=== PATIENT | male | born 1935 | race African-American/Black ===

== ENCOUNTER 2018-01-06 09:59 | Outpatient (CLI) | payer MEDICARE ==
--- NOTE | 2018-01-06 11:09 | RAD ---
RIGHT KNEE FOUR VIEWS: History: Knee pain. FINDINGS: There are arthritic changes of the knee with spiking of the tibial spine with mild medial and lateral compartment narrowing and some degenerative changes of the patellofemoral joint space. No acute proc ess. IMPRESSION: Mild arthritic changes of the knee. POS: [facility]
--- NOTE | 2018-01-06 11:51 | RAD ---
1LEFT KNEE 4 VIEWS: Date: 01/06/18 HISTORY: Left knee pain. COMPARISON: None. FINDINGS: Mild narrowing of the medial compartment with osteophyte formation. No significant joint effusion. Th ere are enthesopathic changes of patella. IMPRESSION: No acute fracture or malalignment. Mild degenerative changes. POS: [facility]
== END 2018-01-06 10:00 | disposition home or self-care (01) ==
LOC: RAD-FRANK 09:59
PROVIDERS: ATTEND Internal Medicine
DX: M17.9 Osteoarthritis of knee, unspecified (principal); M17.11 Unilateral primary osteoarthritis, right knee

== ENCOUNTER 2019-11-09 13:48 | Outpatient (CLI) | payer MEDICARE ==
--- NOTE | 2019-11-09 14:38 | RAD ---
PA AND LATERAL CHEST: HISTORY: Cough. COMPARISON: 12/31/2011 study. FINDINGS: Heart size is enlarged. Pacemaker is present. The lungs are clear of infiltrates. No signs of fail ure. IMPRESSION: Cardiomegaly. POS: [facility]
== END 2019-11-09 13:49 | disposition home or self-care (01) ==
LOC: RAD-FRANK 13:48
PROVIDERS: ATTEND Internal Medicine
DX: R05 Cough (principal); I51.7 Cardiomegaly
CPT/HCPCS: 71046

== ENCOUNTER 2020-07-05 04:55 | Emergency (ER) | payer MEDICARE ==
[2020-07-05] MEDS ORDERED: Oxymetazoline HCl 0.05% (30 ML BOT) ONE (05:16)
[2020-07-05 05:51] LABS: #Basophils 0.1 thou/uL (0.0-0.2); #Eosinphils 0.1 thou/uL (0.0-0.7); #Lymphocytes 2.4 thou/uL (1.20-3.40); #Monocytes 0.5 thou/uL (0.11-0.59); #Neutrophils 2.6 thou/uL (1.40-6.50); %Basophils 0.9 % (0.0-1.0); %Eosinophils 2.4 % (0.0-10.0); %Lymphocytes 41.7 % (21.0-51.0); %Monocytes 8.8 % (0.0-10.0); %Neutrophils 46.3 % (42.0-75.0); Hemoglobin 12.4 g/dL (14.0-18.0); Mean Corpuscular HGB CONC 30.5 g/dL (32.0-36.0); Mean Corpuscular Hemoglobin 28.9 pg (27.0-31.0); Mean Corpuscular Volume 94.8 fL (78.0-98.0); Mean Platelet Volume 8.6 fL (7.4-10.4); Platelet Count 140 thou/uL (130-400); RBC Distribution Width 14.5 % (11.5-14.5); Red Blood Cell (RBC) Count 4.28 mill/uL (4.70-6.10); White Blood Cell (WBC) Count 5.7 thou/uL (4.8-10.8)
[2020-07-05 06:02] LABS: INR-International Normal Ratio 2.3; Prothrombin Time 25.8 sec (12.0-14.7)
== END 2020-07-05 06:27 | disposition home or self-care (01) ==
LOC: ERS 04:55
DX: R04.0 Epistaxis (principal); Z79.01 Long term (current) use of anticoagulants; I10 Essential (primary) hypertension; Z79.899 Other long term (current) drug therapy
CPT/HCPCS: 36415; 85025; 85610; 85730; 99283

== ENCOUNTER 2022-02-12 08:52 | Outpatient (CLI) | payer MEDICARE | END 2022-02-12 08:53 | disposition home or self-care (01) | LOC: ULT 08:52 | PROVIDERS: ATTEND Nurse Practitioner Family | DX: M79.604 Pain in right leg (principal) ==

== ENCOUNTER 2022-12-11 15:07 | Inpatient (IN) | payer MEDICARE ==
[2022-12-11 16:55] LABS: INR-International Normal Ratio 2.7; Prothrombin Time 29.5 sec (12.0-14.7)
[2022-12-11 16:56] LABS: #Lymphocytes 1.8 thou/uL (1.20-3.40); #Monocytes 0.6 thou/uL (0.11-0.59); #Neutrophils 2.8 thou/uL (1.40-6.50); %Basophils 0.4 % (0.0-1.0); %Eosinophils 0.3 % (0.0-10.0); %Lymphocytes 34.3 % (21.0-51.0); %Monocytes 12.1 % (0.0-10.0); %Neutrophils 52.8 % (42.0-75.0); Hemoglobin 15.9 g/dL (14.0-18.0); Mean Corpuscular HGB CONC 31.2 g/dL (32.0-36.0); Mean Corpuscular Hemoglobin 29.3 pg (27.0-31.0); Mean Corpuscular Volume 93.7 fl (78.0-98.0); Mean Platelet Volume 7.3 fL (7.4-10.4); Platelet Count 212 10x3/uL (130-400); RBC Distribution Width 14.9 % (11.5-14.5); Red Blood Cell (RBC) Count 5.44 mill/uL (4.70-6.10); White Blood Cell (WBC) Count 5.2 10x3/uL (4.8-10.8)
[2022-12-11 17:07] LABS: ALT (SGPT) 21 U/L (8-55); AST (SGOT) 28 U/L (5-34); Albumin 3.7 g/dL (3.4-4.8); Alkaline Phosphatase 75 U/L (40-110); Anion Gap 13 mmol/L (10-20); BUN (Urea Nitrogen) 14 mg/dL (8.4-25.7); Bilirubin, Total 1.5 mg/dL (0.2-1.2); Calc. Creatinine Clearance 0 mL/min (70-130); Calcium 9.8 mg/dL (7.8-10.44); Carbon Dioxide 28 mmol/L (23-31); Chloride 100 mmol/L (98-107); Estimated GFR 65; Globulin 3.5 g/dL (2.4-3.5); Glucose 98 mg/dL (83-110); Potassium 3.3 mmol/L (3.5-5.1); Protein, Total 7.2 g/dL (5.8-8.1); Sodium 138 mmol/L (136-145)
[2022-12-11 17:28] LABS: CKMB 1.8 ng/mL (0-6.6)
[2022-12-12 00:54] VITALS: BMI 20.6
[2022-12-12 05:25] LABS: #Basophils 0.1 thou/uL (0.0-0.2); #Lymphocytes 2.3 thou/uL (1.20-3.40); #Monocytes 0.7 thou/uL (0.11-0.59); #Neutrophils 4.1 thou/uL (1.40-6.50); %Basophils 0.8 % (0.0-1.0); %Eosinophils 0.3 % (0.0-10.0); %Lymphocytes 32.6 % (21.0-51.0); %Monocytes 9.2 % (0.0-10.0); %Neutrophils 57.1 % (42.0-75.0); Hemoglobin 14.8 g/dL (14.0-18.0); Mean Corpuscular Hemoglobin 29.1 pg (27.0-31.0); Mean Corpuscular Volume 93.9 fl (78.0-98.0); Mean Platelet Volume 7.4 fL (7.4-10.4); Platelet Count 204 10x3/uL (130-400); RBC Distribution Width 14.8 % (11.5-14.5); Red Blood Cell (RBC) Count 5.09 mill/uL (4.70-6.10); White Blood Cell (WBC) Count 7.2 10x3/uL (4.8-10.8)
[2022-12-12 05:31] LABS: Anion Gap 11 mmol/L (10-20); BUN (Urea Nitrogen) 15 mg/dL (8.4-25.7); Calc. Creatinine Clearance 49 mL/min (70-130); Calcium 9.2 mg/dL (7.8-10.44); Carbon Dioxide 27 mmol/L (23-31); Chloride 104 mmol/L (98-107); Estimated GFR 82; Glucose 91 mg/dL (83-110); Potassium 3.1 mmol/L (3.5-5.1); Sodium 139 mmol/L (136-145)
[2022-12-12] MEDS: Atorvastatin Calcium 20 MG TAB PO SCH (08:31)
[2022-12-12 09:40] LABS: Cardiac Risk 2.7 (Less than 4.5)
[2022-12-12] MEDS ORDERED: Temazepam 15 MG CAP PO PRN (10:54)
[2022-12-12 12:52] LABS: INR-International Normal Ratio 2.5; Prothrombin Time 27.7 sec (12.0-14.7)
[2022-12-12] MEDS ORDERED: Acetaminophen/Codeine 30-300mg Tablet PO PRN (16:06)
[2022-12-12] MEDS: Potassium Chloride 20 MEQ in Premix Bag 1 BAG IVPB SCH ×2 (17:05→20:57)
[2022-12-12] MEDS: Carvedilol 6.25 MG TAB PO SCH (20:59)
[2022-12-12] MEDS ORDERED: Non-Formulary Item 1 EACH (Carvedilol [Coreg] 12.5 MG Tab) PO SCH (21:00)
[2022-12-13 06:24] LABS: #Monocytes 0.6 thou/uL (0.11-0.59); #Neutrophils 3.2 thou/uL (1.40-6.50); %Basophils 0.8 % (0.0-1.0); %Eosinophils 0.2 % (0.0-10.0); %Lymphocytes 34.1 % (21.0-51.0); %Monocytes 10.2 % (0.0-10.0); %Neutrophils 54.6 % (42.0-75.0); Hemoglobin 14.2 g/dL (14.0-18.0); Mean Corpuscular HGB CONC 32.3 g/dL (32.0-36.0); Mean Corpuscular Hemoglobin 30.3 pg (27.0-31.0); Mean Corpuscular Volume 93.7 fl (78.0-98.0); Mean Platelet Volume 7.8 fL (7.4-10.4); Platelet Count 173 10x3/uL (130-400); RBC Distribution Width 14.8 % (11.5-14.5); White Blood Cell (WBC) Count 5.8 10x3/uL (4.8-10.8)
[2022-12-13 06:31] LABS: INR-International Normal Ratio 1.9; Prothrombin Time 22.4 sec (12.0-14.7)
[2022-12-13 06:43] LABS: ALT (SGPT) 17 U/L (8-55); AST (SGOT) 22 U/L (5-34); Albumin 2.7 g/dL (3.4-4.8); Alkaline Phosphatase 63 U/L (40-110); Anion Gap 11 mmol/L (10-20); BUN (Urea Nitrogen) 12 mg/dL (8.4-25.7); Bilirubin, Total 1.3 mg/dL (0.2-1.2); Calc. Creatinine Clearance 52 mL/min (70-130); Calcium 8.9 mg/dL (7.8-10.44); Carbon Dioxide 25 mmol/L (23-31); Chloride 106 mmol/L (98-107); Estimated GFR 84; Globulin 2.8 g/dL (2.4-3.5); Glucose 90 mg/dL (83-110); Potassium 3.7 mmol/L (3.5-5.1); Protein, Total 5.5 g/dL (5.8-8.1); Sodium 138 mmol/L (136-145)
[2022-12-13 06:47] LABS: Troponin I 0.044 ng/mL (< 0.028)
[2022-12-13] MEDS: Atorvastatin Calcium 20 MG TAB PO SCH (08:27)
[2022-12-13] MEDS ORDERED: Lisinopril/Hydrochlorothiazide 10 mg/12.5 mg Tablet PO SCH (09:00)
[2022-12-13] MEDS ORDERED: Amlodipine 10 MG TAB PO SCH (09:00)
[2022-12-13] MEDS ORDERED: Aspirin 325 MG TAB PO SCH (09:00)
[2022-12-13] MEDS: Carvedilol 6.25 MG TAB PO SCH ×2 (10:31→20:16)
[2022-12-13] MEDS: Acetaminophen/Codeine 30-300mg Tablet PO SCH ×3 (12:52→20:15)
[2022-12-13] MEDS ORDERED: Warfarin Sodium 5 MG TAB PO SCH (17:00)
[2022-12-14] MEDS: Acetaminophen/Codeine 30-300mg Tablet PO SCH ×3 (03:23→09:23)
[2022-12-14 06:09] LABS: #Basophils 0.1 thou/uL (0.0-0.2); #Lymphocytes 2.2 thou/uL (1.20-3.40); #Monocytes 0.5 thou/uL (0.11-0.59); #Neutrophils 3.3 thou/uL (1.40-6.50); %Basophils 1.2 % (0.0-1.0); %Eosinophils 0.1 % (0.0-10.0); %Lymphocytes 36.3 % (21.0-51.0); %Monocytes 8.7 % (0.0-10.0); %Neutrophils 53.6 % (42.0-75.0); Hemoglobin 13.8 g/dL (14.0-18.0); Mean Corpuscular HGB CONC 32.5 g/dL (32.0-36.0); Mean Corpuscular Hemoglobin 30.3 pg (27.0-31.0); Mean Corpuscular Volume 93.3 fl (78.0-98.0); Mean Platelet Volume 7.6 fL (7.4-10.4); Platelet Count 165 10x3/uL (130-400); RBC Distribution Width 14.9 % (11.5-14.5); Red Blood Cell (RBC) Count 4.54 mill/uL (4.70-6.10); White Blood Cell (WBC) Count 6.2 10x3/uL (4.8-10.8)
[2022-12-14 06:18] LABS: INR-International Normal Ratio 1.9; Prothrombin Time 22.1 sec (12.0-14.7)
[2022-12-14 06:28] LABS: Anion Gap 10 mmol/L (10-20); BUN (Urea Nitrogen) 11 mg/dL (8.4-25.7); Calc. Creatinine Clearance 56 mL/min (70-130); Calcium 8.7 mg/dL (7.8-10.44); Carbon Dioxide 23 mmol/L (23-31); Chloride 105 mmol/L (98-107); Estimated GFR 86; Glucose 88 mg/dL (83-110); Potassium 4.2 mmol/L (3.5-5.1); Sodium 134 mmol/L (136-145)
[2022-12-14] MEDS ORDERED: Furosemide 40 MG TAB PO SCH (09:00)
[2022-12-14] MEDS ORDERED: Lisinopril 5 MG TAB PO SCH (09:00)
[2022-12-14] MEDS ORDERED: Amlodipine 10 MG TAB PO SCH (09:00)
[2022-12-14] MEDS ORDERED: Lisinopril 10 MG TAB PO SCH (09:00)
[2022-12-14] MEDS ORDERED: Aspirin Chewable 81 MG TAB PO SCH (09:00)
[2022-12-14] MEDS: Carvedilol 6.25 MG TAB PO SCH (09:23)
[2022-12-14] MEDS: Atorvastatin Calcium 20 MG TAB PO SCH (09:23)
[2022-12-14 12:26] VITALS: TEMP 98.3
[2022-12-14 16:07] VITALS: BP 94/63
[2022-12-16] MEDS ORDERED: Warfarin Sodium 5 MG TAB PO SCH (17:00)
== END 2022-12-14 16:07 | disposition home health service (06) | DRG 312 ==
LOC: ERS 15:07 → SUATTDRO 15:07 → NEURO 18:10 → OBSVTOIN 12-13 13:55
PROVIDERS: ADMIT Family Medicine; ATTEND Hospitalist
DX: I95.1 Orthostatic hypotension (principal); I48.91 Unspecified atrial fibrillation; I25.10 Atherosclerotic heart disease of native coronary artery without angina pectoris; I10 Essential (primary) hypertension; K21.9 Gastro-esophageal reflux disease without esophagitis; E87.6 Hypokalemia; E78.5 Hyperlipidemia, unspecified; Z95.0 Presence of cardiac pacemaker; Z79.899 Other long term (current) drug therapy; Z79.82 Long term (current) use of aspirin
CPT/HCPCS: 36415; 70450; 71045; 80048; 80053; 80061; 82553; 83735; 83880; 84484; 85025; 85610; 85730; 93005; 93306; 93880; 96365; 96366; 96372; G0378; J1650; J3480; U0003; U0005

== ENCOUNTER 2022-12-23 13:48 | Emergency (ER) | payer OTHER, MEDICARE ==
[2022-12-23 15:26] LABS: #Lymphocytes 1.5 thou/uL (1.20-3.40); #Monocytes 0.5 thou/uL (0.11-0.59); #Neutrophils 3.4 thou/uL (1.40-6.50); %Basophils 0.2 % (0.0-1.0); %Eosinophils 0.4 % (0.0-10.0); %Neutrophils 62.5 % (42.0-75.0); Hemoglobin 13.1 g/dL (14.0-18.0); Mean Corpuscular HGB CONC 30.5 g/dL (32.0-36.0); Mean Corpuscular Hemoglobin 28.9 pg (27.0-31.0); Mean Corpuscular Volume 94.7 fl (78.0-98.0); Mean Platelet Volume 7.3 fL (7.4-10.4); Platelet Count 139 10x3/uL (130-400); RBC Distribution Width 15.6 % (11.5-14.5); Red Blood Cell (RBC) Count 4.52 mill/uL (4.70-6.10); White Blood Cell (WBC) Count 5.4 10x3/uL (4.8-10.8)
[2022-12-23 15:34] LABS: INR-International Normal Ratio 2.5; PTT 34.1 sec (22.9-36.1); Prothrombin Time 27.7 sec (12.0-14.7)
[2022-12-23 15:50] LABS: ALT (SGPT) 19 U/L (8-55); AST (SGOT) 24 U/L (5-34); Albumin 3.3 g/dL (3.4-4.8); Alkaline Phosphatase 58 U/L (40-110); Anion Gap 10 mmol/L (10-20); BUN (Urea Nitrogen) 14 mg/dL (8.4-25.7); Bilirubin, Total 0.6 mg/dL (0.2-1.2); CK (CPK) 51 U/L (30-200); Calc. Creatinine Clearance 0 mL/min (70-130); Calcium 9.5 mg/dL (7.8-10.44); Carbon Dioxide 25 mmol/L (23-31); Chloride 106 mmol/L (98-107); Estimated GFR 71; Globulin 2.6 g/dL (2.4-3.5); Glucose 102 mg/dL (83-110); Potassium 3.7 mmol/L (3.5-5.1); Protein, Total 5.9 g/dL (5.8-8.1); Sodium 137 mmol/L (136-145)
[2022-12-23] MEDS ORDERED: HYDROcodone/Acetaminophen 5/325 mg Tablet ONE (16:02)
== END 2022-12-23 16:38 | disposition home or self-care (01) ==
LOC: ERS 13:48
DX: S00.83XA Contusion of other part of head, initial encounter (principal); I25.10 Atherosclerotic heart disease of native coronary artery without angina pectoris; I10 Essential (primary) hypertension; K21.9 Gastro-esophageal reflux disease without esophagitis; W01.0XXA Fall on same level from slipping, tripping and stumbling without subsequent striking against object, initial encounter; Z79.01 Long term (current) use of anticoagulants
CPT/HCPCS: 36415; 70450; 72125; 80053; 82550; 85025; 85610; 85730; 93005

== ENCOUNTER 2023-03-02 14:41 | Inpatient (IN) | payer MEDICARE, OTHER ==
[2023-03-02 15:08] LABS: #Monocytes 0.8 thou/uL (0.11-0.59); #Neutrophils 4.3 thou/uL (1.40-6.50); %Basophils 0.3 % (0.0-1.0); %Lymphocytes 24.8 % (21.0-51.0); %Monocytes 11.7 % (0.0-10.0); %Neutrophils 62.8 % (42.0-75.0); Hemoglobin 13.1 g/dL (14.0-18.0); Mean Corpuscular HGB CONC 32.4 g/dL (32.0-36.0); Mean Corpuscular Hemoglobin 29.6 pg (27.0-31.0); Mean Corpuscular Volume 91.2 fl (78.0-98.0); Mean Platelet Volume 10.4 fL (7.4-10.4); RBC Distribution Width 19.3 % (11.5-14.5); Red Blood Cell (RBC) Count 4.43 mill/uL (4.70-6.10); White Blood Cell (WBC) Count 6.9 10x3/uL (4.8-10.8)
[2023-03-02 15:11] LABS: Platelet Count 117 10x3/uL (130-400)
[2023-03-02 15:31] LABS: ALT (SGPT) 76 U/L (8-55); AST (SGOT) 208 U/L (5-34); Albumin 3.1 g/dL (3.4-4.8); Alkaline Phosphatase 76 U/L (40-110); Anion Gap 18 mmol/L (10-20); BUN (Urea Nitrogen) 25 mg/dL (8.4-25.7); Bilirubin, Total 3.8 mg/dL (0.2-1.2); CK (CPK) 167 U/L (30-200); Calc. Creatinine Clearance 0 mL/min (70-130); Calcium 9.2 mg/dL (7.8-10.44); Carbon Dioxide 19 mmol/L (23-31); Chloride 107 mmol/L (98-107); Estimated GFR 75; Globulin 2.9 g/dL (2.4-3.5); Glucose 79 mg/dL (83-110); Sodium 140 mmol/L (136-145)
[2023-03-02 15:53] LABS: CKMB 2.3 ng/mL (0-6.6)
[2023-03-02] MEDS ORDERED: Aspirin 81 mg Enteric Coated Tablet ONE (17:05)
[2023-03-02] MEDS ORDERED: Acetaminophen 325 MG TAB PO PRN (17:29)
[2023-03-02] MEDS ORDERED: HYDROcodone/Acetaminophen 5/325 mg Tablet PO PRN (17:29)
[2023-03-02] MEDS ORDERED: Ondansetron PF 4 MG/2 ML Vial IVP PRN (17:29)
[2023-03-02] MEDS ORDERED: Nitroglycerin 0.4 MG TAB (25 Tab Bottle) SL PRN (17:29)
[2023-03-02] MEDS ORDERED: Ondansetron ODT 4 MG TAB PO PRN (17:29)
[2023-03-02 18:49] LABS: Troponin I 0.143 ng/mL (< 0.028)
[2023-03-02 20:21] VITALS: BMI 19.3
[2023-03-02 21:22] LABS: INR-International Normal Ratio 1.9; PTT 41.1 sec (22.9-36.1); Prothrombin Time 22.8 sec (12.0-14.7)
[2023-03-02 21:38] LABS: Troponin I 0.134 ng/mL (< 0.028)
[2023-03-02 23:25] LABS: Bacteria/HPF None Seen HPF (None Seen); Bilirubin 1+ (Negative); Blood, Urine 1+ (Negative); CAUTI Indications for Culture Alt mental st,lethar; Clarity Clear (Clear); Glucose, Urine (Dipstick) Normal (Negative); Ketone, Urine 10 mg/dL (Negative); Leukocyte Negative Leu/uL (Negative); Nitrite Negative (Negative); Protein, Urine (Dipstick) 100 mg/dL (Neg-Trace); RBC/HPF 0-3 HPF (0-3); Specific Gravity, Urine 1.023 (1.002-1.036); Squamous Epithelial 0-3 HPF (0-3); Urobilinogen 3 mg/dL (Less than 2)
[2023-03-03 00:16] LABS: Urine Culture Reflex No No
[2023-03-03 04:44] LABS: #Neutrophils 4.7 thou/uL (1.40-6.50); %Basophils 0.3 % (0.0-1.0); %Eosinophils 0.1 % (0.0-10.0); %Lymphocytes 26.4 % (21.0-51.0); %Monocytes 12.6 % (0.0-10.0); %Neutrophils 59.8 % (42.0-75.0); Hemoglobin 13.4 g/dL (14.0-18.0); Mean Corpuscular HGB CONC 32.4 g/dL (32.0-36.0); Mean Corpuscular Hemoglobin 29.5 pg (27.0-31.0); RBC Distribution Width 19.7 % (11.5-14.5); Red Blood Cell (RBC) Count 4.54 mill/uL (4.70-6.10); White Blood Cell (WBC) Count 7.9 10x3/uL (4.8-10.8)
[2023-03-03 04:47] LABS: Platelet Count 111 10x3/uL (130-400)
[2023-03-03 05:38] LABS: ALT (SGPT) 76 U/L (8-55); AST (SGOT) 196 U/L (5-34); Albumin 3.2 g/dL (3.4-4.8); Alkaline Phosphatase 74 U/L (40-110); Anion Gap 22 mmol/L (10-20); BUN (Urea Nitrogen) 30 mg/dL (8.4-25.7); Bilirubin, Total 4.2 mg/dL (0.2-1.2); Calc. Creatinine Clearance 36 mL/min (70-130); Calcium 9.5 mg/dL (7.8-10.44); Carbon Dioxide 18 mmol/L (23-31); Cardiac Risk 6.5 (Less than 4.5); Chloride 108 mmol/L (98-107); Cholesterol 157 mg/dl (< 200 Desired); Estimated GFR 64; Globulin 3.2 g/dL (2.4-3.5); Glucose 91 mg/dL (83-110); HDL Cholesterol 24 mg/dL (>60 Neg Risk); LDL Cholesterol, Calculated 109 mg/dL; Potassium 5.3 mmol/L (3.5-5.1); Protein, Total 6.4 g/dL (5.8-8.1); Sodium 143 mmol/L (136-145); Triglycerides 118 mg/dL (Less than 150)
[2023-03-03] MEDS ORDERED: Metoclopramide HCl 10 MG TAB PO SCH (09:00)
[2023-03-03] MEDS ORDERED: Aspirin Chewable 81 MG TAB PO SCH (09:00)
[2023-03-03] MEDS ORDERED: Atorvastatin Calcium 20 MG TAB PO SCH (09:00)
[2023-03-03] MEDS: Aspirin Chewable 81 MG TAB PO SCH (09:46)
[2023-03-03] MEDS ORDERED: Carvedilol 6.25 MG TAB PO SCH (10:00)
[2023-03-03] MEDS: Sodium Chloride 0.9% 1,000 ML IV SCH (13:49)
[2023-03-03] MEDS: Carvedilol 6.25 MG TAB PO SCH ×2 (17:07→18:42)
[2023-03-03] MEDS: Warfarin Sodium 7.5 MG TAB PO SCH ×2 (17:08→18:43)
[2023-03-03] MEDS ORDERED: Atorvastatin Calcium 40 MG TAB PO SCH (21:00)
[2023-03-04] MEDS: guaiFENesin ER 600 MG TAB PO SCH ×2 (00:35→10:03)
[2023-03-04 04:54] LABS: Mean Corpuscular HGB CONC 32.8 g/dL (32.0-36.0); Mean Corpuscular Hemoglobin 29.3 pg (27.0-31.0); Mean Corpuscular Volume 89.4 fl (78.0-98.0); Platelet Count 91 10x3/uL (130-400); Red Blood Cell (RBC) Count 4.43 mill/uL (4.70-6.10); White Blood Cell (WBC) Count 7.5 10x3/uL (4.8-10.8)
[2023-03-04 05:03] LABS: INR-International Normal Ratio 1.7; PTT 40.8 sec (22.9-36.1)
[2023-03-04 05:09] LABS: Acetaminophen Less than 10 mcg/mL (10.0-30.0); Alcohol Less than 10.0 mg/dL (Less than 10); Salicylate Less than 8.0 mg/dL (15.0-30.0)
[2023-03-04 05:23] LABS: AST (SGOT) 133 U/L (5-34); Albumin 2.7 g/dL (3.4-4.8); Alkaline Phosphatase 52 U/L (40-110); Anion Gap 16 mmol/L (10-20); BUN (Urea Nitrogen) 19 mg/dL (8.4-25.7); Bilirubin, Total 4.9 mg/dL (0.2-1.2); Calc. Creatinine Clearance 45 mL/min (70-130); Calcium 8.8 mg/dL (7.8-10.44); Carbon Dioxide 17 mmol/L (23-31); Chloride 108 mmol/L (98-107); Estimated GFR 82; Globulin 3.5 g/dL (2.4-3.5); Glucose 81 mg/dL (83-110); Potassium 4.2 mmol/L (3.5-5.1); Protein, Total 6.2 g/dL (5.8-8.1); Sodium 137 mmol/L (136-145)
[2023-03-04 05:36] LABS: HBCM Index 0.06 S/CO (0-0.79); HBSAg Index 0.19 S/CO (0-0.99); Hep A IgM AB Non-Reactive S/CO (NonReactive); Hep A IgM S/CO 0.38 S/CO (0-0.79); Hep B Surf Ag Non-Reactive S/CO (NonReactive); Hep C IgG Ab Non-Reactive S/CO (NonReactive); Hep C Index 0.14 S/CO (0-0.79); Hepatitis B Core IgM Abs Non-Reactive S/CO (NonReactive)
[2023-03-04 06:00] LABS: ALT (SGPT) 56 U/L (8-55)
[2023-03-04] MEDS ORDERED: Megestrol Acetate 40 MG TAB PO SCH (09:00)
[2023-03-04 09:54] LABS: Troponin I 0.102 ng/mL (< 0.028)
[2023-03-04] MEDS: Carvedilol 6.25 MG TAB PO SCH ×2 (10:02→17:11)
[2023-03-04] MEDS: Aspirin Chewable 81 MG TAB PO SCH (10:02)
[2023-03-04] MEDS: Thiamine 100 MG TAB PO SCH (10:03)
[2023-03-04 14:04] LABS: ANA Symphony (Qualitative) Negative (Negative); ANA Symphony (Quantitative) 0.4 Ratio (< 0.7 Negative); EliA Vaculitis New Method **** NEW METHOD ****; Mitochondrial Ab 1.7 U/mL (<4 Negative); dsDNA IgG Antibody 1.6 IU/mL (<10 Negative)
[2023-03-04] MEDS: Sodium Chloride 0.9% 1,000 ML IV SCH (15:27)
[2023-03-04] MEDS ORDERED: Megestrol Acetate 400 MG/10 ML UDCUP PO SCH (17:00)
[2023-03-04] MEDS ORDERED: Megestrol Acetate 800 MG/20 ML UDCUP PO SCH (17:00)
[2023-03-04] MEDS: GUAIFENESIN SF SOLN 200 MG/10 ML UDCUP PO SCH (17:10)
[2023-03-04] MEDS: Warfarin Sodium 5 MG TAB PO SCH (17:11)
[2023-03-05 05:16] LABS: INR-International Normal Ratio 1.6
[2023-03-05 05:28] LABS: ALT (SGPT) 42 U/L (8-55); AST (SGOT) 82 U/L (5-34); Albumin 2.6 g/dL (3.4-4.8); Alkaline Phosphatase 70 U/L (40-110); Anion Gap 15 mmol/L (10-20); BUN (Urea Nitrogen) 29 mg/dL (8.4-25.7); Bilirubin, Total 4.3 mg/dL (0.2-1.2); Calc. Creatinine Clearance 51 mL/min (70-130); Calcium 8.8 mg/dL (7.8-10.44); Carbon Dioxide 18 mmol/L (23-31); Chloride 109 mmol/L (98-107); Estimated GFR 86; Globulin 2.9 g/dL (2.4-3.5); Glucose 96 mg/dL (83-110); Potassium 3.7 mmol/L (3.5-5.1); Protein, Total 5.5 g/dL (5.8-8.1); Sodium 138 mmol/L (136-145)
[2023-03-05] MEDS ORDERED: Megestrol Acetate 400 MG/10 ML UDCUP PO SCH (09:00)
[2023-03-05 09:25] LABS: Hemoglobin 13.4 g/dL (14.0-18.0); Mean Corpuscular HGB CONC 31.3 g/dL (32.0-36.0); Mean Corpuscular Hemoglobin 29.1 pg (27.0-31.0); RBC Distribution Width 21.8 % (11.5-14.5)
[2023-03-05 09:26] LABS: Delete Auto Diff?? YES; Manual Diff?? YES; Platelet Count 71 10x3/uL (130-400)
[2023-03-05] MEDS: Carvedilol 6.25 MG TAB PO SCH ×2 (10:12→18:25)
[2023-03-05] MEDS: Aspirin Chewable 81 MG TAB PO SCH (10:12)
[2023-03-05] MEDS: GUAIFENESIN SF SOLN 200 MG/10 ML UDCUP PO SCH ×2 (10:12→20:59)
[2023-03-05] MEDS: Megestrol Acetate 800 MG/20 ML UDCUP PO SCH (10:12)
[2023-03-05] MEDS: Thiamine 100 MG TAB PO SCH (10:12)
[2023-03-05] MEDS: Sodium Chloride 0.9% 1,000 ML IV SCH (10:35)
[2023-03-05 10:37] LABS: Band 4 % (5-11); Lymphocytes 17 % (21-51); Monocytes 3 % (0-10); Neutrophil 76 % (42-75); Nucleated RBC (Manual Ct) 6 % (0)
[2023-03-05 10:38] LABS: Macrocytosis SLIGHT = 6-15 cells (100X) (0-5/hpf); Platelet Adequacy Comment Significant decrease; Polychromasia MODERATE = 3-4 cells (100X) (0-2/hpf)
[2023-03-05] MEDS: Warfarin Sodium 5 MG TAB PO SCH (18:25)
[2023-03-06 04:43] LABS: #Eosinphils 0.1 thou/uL (0.0-0.7); #Monocytes 0.8 thou/uL (0.11-0.59); #Neutrophils 5.3 thou/uL (1.40-6.50); %Basophils 0.4 % (0.0-1.0); %Eosinophils 0.8 % (0.0-10.0); %Lymphocytes 19.4 % (21.0-51.0); %Monocytes 9.8 % (0.0-10.0); Hemoglobin 12.9 g/dL (14.0-18.0); Mean Corpuscular Hemoglobin 29.3 pg (27.0-31.0); Mean Corpuscular Volume 91.4 fl (78.0-98.0); Red Blood Cell (RBC) Count 4.41 mill/uL (4.70-6.10); White Blood Cell (WBC) Count 7.7 10x3/uL (4.8-10.8)
[2023-03-06 04:49] LABS: Platelet Count 106 10x3/uL (130-400)
[2023-03-06 04:57] LABS: INR-International Normal Ratio 1.8; Prothrombin Time 21.3 sec (12.0-14.7)
[2023-03-06 05:14] LABS: ALT (SGPT) 40 U/L (8-55); AST (SGOT) 69 U/L (5-34); Albumin 2.7 g/dL (3.4-4.8); Alkaline Phosphatase 68 U/L (40-110); Anion Gap 16 mmol/L (10-20); BUN (Urea Nitrogen) 27 mg/dL (8.4-25.7); Bilirubin, Total 4.2 mg/dL (0.2-1.2); Calc. Creatinine Clearance 50 mL/min (70-130); Calcium 8.8 mg/dL (7.8-10.44); Carbon Dioxide 17 mmol/L (23-31); Chloride 111 mmol/L (98-107); Estimated GFR 86; Glucose 88 mg/dL (83-110); Potassium 3.8 mmol/L (3.5-5.1); Protein, Total 5.7 g/dL (5.8-8.1); Sodium 140 mmol/L (136-145)
[2023-03-06] MEDS: GUAIFENESIN SF SOLN 200 MG/10 ML UDCUP PO SCH ×2 (09:13→23:20)
[2023-03-06] MEDS: Megestrol Acetate 800 MG/20 ML UDCUP PO SCH (09:13)
[2023-03-06] MEDS: Thiamine 100 MG TAB PO SCH (09:14)
[2023-03-06] MEDS: Carvedilol 6.25 MG TAB PO SCH ×2 (09:14→17:27)
[2023-03-06] MEDS: Aspirin Chewable 81 MG TAB PO SCH (09:14)
[2023-03-06] MEDS: Sodium Chloride 0.9% 1,000 ML IV SCH (09:15)
[2023-03-06] MEDS: Warfarin Sodium 5 MG TAB PO SCH (17:27)
[2023-03-06] MEDS ORDERED: Furosemide 40 MG/4 ML VIAL SLOW IVP SCH ×2 (18:00→23:55)
[2023-03-07 05:01] LABS: INR-International Normal Ratio 1.8; Prothrombin Time 21.7 sec (12.0-14.7)
[2023-03-07 05:10] LABS: #Monocytes 0.7 thou/uL (0.11-0.59); #Neutrophils 4.8 thou/uL (1.40-6.50); %Basophils 0.6 % (0.0-1.0); %Eosinophils 0.6 % (0.0-10.0); %Lymphocytes 15.2 % (21.0-51.0); %Monocytes 10.9 % (0.0-10.0); %Neutrophils 72.1 % (42.0-75.0); Hemoglobin 13.7 g/dL (14.0-18.0); Mean Corpuscular HGB CONC 33.3 g/dL (32.0-36.0); Mean Corpuscular Hemoglobin 29.6 pg (27.0-31.0); Mean Corpuscular Volume 88.8 fl (78.0-98.0); Platelet Count 97 10x3/uL (130-400); RBC Distribution Width 21.6 % (11.5-14.5); Red Blood Cell (RBC) Count 4.63 mill/uL (4.70-6.10); White Blood Cell (WBC) Count 6.6 10x3/uL (4.8-10.8)
[2023-03-07 05:16] LABS: ALT (SGPT) 35 U/L (8-55); AST (SGOT) 57 U/L (5-34); Albumin 2.8 g/dL (3.4-4.8); Alkaline Phosphatase 65 U/L (40-110); Anion Gap 16 mmol/L (10-20); BUN (Urea Nitrogen) 24 mg/dL (8.4-25.7); Bilirubin, Total 3.7 mg/dL (0.2-1.2); Calc. Creatinine Clearance 45 mL/min (70-130); Calcium 8.9 mg/dL (7.8-10.44); Carbon Dioxide 19 mmol/L (23-31); Chloride 110 mmol/L (98-107); Estimated GFR 83; Glucose 84 mg/dL (83-110); Iron 55 ug/dL (65-175); Iron Binding Capacity, Total 225 mcg/dL (261-462); Potassium 3.3 mmol/L (3.5-5.1); Protein, Total 5.8 g/dL (5.8-8.1); Sodium 142 mmol/L (136-145)
[2023-03-07 05:39] LABS: Anisocytosis SLIGHT = 6-15 cells HPF (0-5); Burr Cells SLIGHT = 2-5 cells HPF (0-1); CellaVision Operator ID lab.abc; Large Platelets 7.1 % (0-5); Platelet Adequacy Comment Platelets Decreased; Poikilocytosis SLIGHT = 6-15 cells HPF (0-5); Polychromasia MODERATE = 3-4 cells HPF (0-2); Smudge Cells 22.4 %; Spherocytes SLIGHT = 1-5 cells HPF (None Seen); Target Cells SLIGHT = 2-5 cells HPF (0-1)
[2023-03-07 06:35] LABS: Iron 55 ug/dL (65-175); Iron Binding Capacity, Total 226 mcg/dL (261-462)
[2023-03-07] MEDS: Furosemide 40 MG/4 ML VIAL SLOW IVP SCH ×3 (07:39→16:40)
[2023-03-07] MEDS ORDERED: Potassium Chloride 10 MEQ in Premix Bag 1 BAG IVPB SCH (08:30)
[2023-03-07] MEDS: Carvedilol 6.25 MG TAB PO SCH ×2 (15:00→17:14)
[2023-03-07] MEDS: Aspirin Chewable 81 MG TAB PO SCH (15:01)
[2023-03-07] MEDS: Thiamine 100 MG TAB PO SCH (15:01)
[2023-03-07] MEDS ORDERED: Warfarin Sodium 7.5 MG TAB PO SCH (17:00)
[2023-03-07] MEDS: Dextrose 5 %-0.45 % NaCl 1,000 ML IV SCH (20:06)
[2023-03-07] MEDS ORDERED: Furosemide 40 MG/4 ML VIAL SLOW IVP SCH (23:55)
[2023-03-08 05:19] LABS: Prothrombin Time 23.4 sec (12.0-14.7)
[2023-03-08 05:28] LABS: ALT (SGPT) 32 U/L (8-55); AST (SGOT) 57 U/L (5-34); Albumin 2.9 g/dL (3.4-4.8); Alkaline Phosphatase 63 U/L (40-110); Anion Gap 16 mmol/L (10-20); BUN (Urea Nitrogen) 22 mg/dL (8.4-25.7); Bilirubin, Total 3.9 mg/dL (0.2-1.2); Calc. Creatinine Clearance 42 mL/min (70-130); Carbon Dioxide 19 mmol/L (23-31); Chloride 112 mmol/L (98-107); Estimated GFR 77; Glucose 121 mg/dL (83-110); Potassium 3.3 mmol/L (3.5-5.1); Protein, Total 5.9 g/dL (5.8-8.1); Sodium 144 mmol/L (136-145)
[2023-03-08 07:38] LABS: Hemoglobin 13.5 g/dL (14.0-18.0); Mean Corpuscular Hemoglobin 29.2 pg (27.0-31.0); Mean Corpuscular Volume 85.9 fl (78.0-98.0); RBC Distribution Width 21.8 % (11.5-14.5); Red Blood Cell (RBC) Count 4.62 mill/uL (4.70-6.10); White Blood Cell (WBC) Count 7.3 10x3/uL (4.8-10.8)
[2023-03-08 07:42] LABS: Delete Auto Diff?? YES; Manual Diff?? YES; Platelet Count 114 10x3/uL (130-400)
[2023-03-08 08:30] LABS: Band 23 % (5-11); Lymphocytes 17 % (21-51); Metamyelocyte 2 % (0-0); Monocytes 6 % (0-10); Neutrophil 50 % (42-75); Nucleated RBC (Manual Ct) 11 % (0); Polychromasia MODERATE = 3-4 cells (100X) (0-2/hpf); Reactive Lymphocytes 2 % (0-10)
[2023-03-08 08:31] LABS: Platelet Adequacy Comment Appears Decreased
[2023-03-08] MEDS ORDERED: [UNRECOGNIZED DRUG - OTHER] FS SCH (08:45)
[2023-03-08] MEDS: Carvedilol 6.25 MG TAB PO SCH ×2 (09:56→16:45)
[2023-03-08] MEDS: Dextrose 5 %-0.45 % NaCl 1,000 ML IV SCH ×2 (09:56→16:16)
[2023-03-08] MEDS: Thiamine 100 MG TAB PO SCH (09:56)
[2023-03-08] MEDS: Aspirin Chewable 81 MG TAB PO SCH (09:56)
[2023-03-08] MEDS: Potassium Chloride 20 MEQ in Premix Bag 1 BAG IVPB SCH ×2 (10:09→12:09)
[2023-03-08 13:14] LABS: Magnesium 1.7 mg/dL (1.6-2.6); Phosphorus 1.6 mg/dL (2.3-4.7)
[2023-03-08] MEDS ORDERED: Magnesium 2 GM/50 ML(in water) 2 GM in Premix Bag 1 BAG IVPB SCH (13:30)
[2023-03-08] MEDS ORDERED: Potassium Phosphate 15 MMOL in Sodium Chloride 0.9% 100 ML IVPB SCH (13:45)
[2023-03-08] MEDS ORDERED: Warfarin Sodium 5 MG TAB PO SCH (17:00)
[2023-03-08] MEDS ORDERED: Ipratropium/Albuterol 3 ML NEB NEB SCH (17:15)
[2023-03-08] MEDS ORDERED: Albumin 25% 25 GM/100 ML BOT IVPB SCH (17:15)
[2023-03-08 17:53] LABS: Actual Bicarbonate (HCO3a) 18.8 mEq/L (22-28); Base Excess (BEa) -1.4 mEq/L (-2.0 to +3.0); Calcium, Ionized (arterial) 1.14 mmol/L (1.12-1.30); Carboxyhemoglobin (COHb) 0.8 gm% (0.0-3.0); Hematocrit-ABG 39 % (42.0-52.0); Hemoglobin (Hb) 13.2 g/dL (14.0-18.0); O2 Tension (PaO2), arterial 97.5 mmHg (> 60.0); Potassium - ABG Lab 3.86 mmol/L (3.70-5.30); pH, Arterial 7.563 (7.35-7.45)
[2023-03-08 17:54] LABS: ALV-art Gradient 588.875 mmHg (0-20)
[2023-03-09] MEDS ORDERED: Morphine 4 MG/ML VIAL SLOW IVP PRN (02:02)
[2023-03-09 05:17] LABS: ALT (SGPT) 28 U/L (8-55); AST (SGOT) 49 U/L (5-34); Albumin 3.1 g/dL (3.4-4.8); Alkaline Phosphatase 62 U/L (40-110); Anion Gap 17 mmol/L (10-20); BUN (Urea Nitrogen) 25 mg/dL (8.4-25.7); Bilirubin, Total 4.2 mg/dL (0.2-1.2); Calc. Creatinine Clearance 36 mL/min (70-130); Carbon Dioxide 18 mmol/L (23-31); Chloride 112 mmol/L (98-107); Estimated GFR 64; Globulin 2.9 g/dL (2.4-3.5); Glucose 86 mg/dL (83-110); Magnesium 2.2 mg/dL (1.6-2.6); Potassium 3.9 mmol/L (3.5-5.1); Sodium 143 mmol/L (136-145)
[2023-03-09 06:11] LABS: Phosphorus 2.2 mg/dL (2.3-4.7)
[2023-03-09] MEDS: Carvedilol 6.25 MG TAB PO SCH ×2 (09:23→16:53)
[2023-03-09] MEDS: Aspirin Chewable 81 MG TAB PO SCH (09:24)
[2023-03-09] MEDS: Thiamine 100 MG TAB PO SCH (09:24)
[2023-03-09] MEDS ORDERED: Furosemide 40 MG/4 ML VIAL SLOW IVP SCH (09:30)
[2023-03-09] MEDS ORDERED: Albumin 25% 25 GM/100 ML BOT IVPB SCH (09:30)
[2023-03-09] MEDS ORDERED: Dextrose 5 %-0.45 % NaCl 1,000 ML IV SCH (10:00)
[2023-03-09 14:17] LABS: pH, Arterial 7.552 (7.35-7.45)
[2023-03-09 14:18] LABS: CO2 Tension 22.2 mmHg (35.0-45.0); O2 Tension (PaO2), arterial 136.1 mmHg (> 60.0)
[2023-03-09 14:19] LABS: Actual Bicarbonate (HCO3a) 19.1 mEq/L (22-28); Base Excess (BEa) -1.5 mEq/L (-2.0 to +3.0); Calcium, Ionized (arterial) 1.13 mmol/L (1.12-1.30); Hematocrit-ABG 36 % (42.0-52.0); Hemoglobin (Hb) 12.4 g/dL (14.0-18.0); Potassium - ABG Lab 3.96 mmol/L (3.70-5.30); Puncture Site RBA
[2023-03-09 14:26] LABS: Hemoglobin 11.8 g/dL (14.0-18.0); Mean Corpuscular HGB CONC 32.8 g/dL (32.0-36.0); Mean Corpuscular Hemoglobin 29.4 pg (27.0-31.0); Mean Corpuscular Volume 89.6 fl (78.0-98.0); Platelet Count 154 10x3/uL (130-400); Red Blood Cell (RBC) Count 4.02 mill/uL (4.70-6.10)
[2023-03-09 14:29] LABS: Delete Auto Diff?? YES; Manual Diff?? YES
[2023-03-09 14:48] LABS: Magnesium 2.2 mg/dL (1.6-2.6); Phosphorus 2.3 mg/dL (2.3-4.7)
[2023-03-09 15:10] LABS: Anisocytosis MODERATE=16-30 cells HPF (0-5); Band 10 % (5-11); Burr Cells MODERATE= 6-15 cells HPF (0-1); CellaVision Operator ID LAB.KB; Lymphocytes 12 % (21-51); Monocytes 4 % (0-10); Neutrophil 73 % (42-75); Nucleated RBC (Manual Ct) 11 % (0); Ovalocytes SLIGHT = 2-5 cells HPF (0-1); Platelet Adequacy Comment Platelets Normal; Poikilocytosis SLIGHT = 6-15 cells HPF (0-5); Polychromasia SLIGHT = 2-3 cells HPF (0-2); Reactive Lymphocytes 1 % (0-10); Smudge Cells 18.4 %; Target Cells SLIGHT = 2-5 cells HPF (0-1); Total Cell Count 103
[2023-03-09] MEDS ORDERED: Ampicillin/Sulbactam 1.5 GM in Sodium Chloride 0.9% 100 ML IVPB SCH (18:00)
[2023-03-09] MEDS ORDERED: Scopolamine 1.5 mg/72 hour Patch TOP SCH (20:30)
[2023-03-09] MEDS ORDERED: Ondansetron PF 4 MG/2 ML Vial IVP PRN (20:30)
[2023-03-09] MEDS ORDERED: Lorazepam 2 MG/ML VIAL SLOW IVP SCH (20:30)
[2023-03-09] MEDS ORDERED: Lorazepam 2 MG/ML VIAL SLOW IVP PRN (20:30)
[2023-03-09] MEDS ORDERED: Morphine 2 MG/ML VIAL SLOW IVP PRN (20:32)
[2023-03-09] MEDS ORDERED: Morphine 4 MG/ML VIAL SLOW IVP SCH ×2 (20:45→21:15)
[2023-03-09 21:49] VITALS: TEMP 97.6
[2023-03-09 22:50] VITALS: BP 121/70
[2023-03-09 22:51] LABS: SARS-CoV-2 NAA Rapid Test Not Detected (NotDetected)
[2023-03-10 16:03] LABS: CO2 Tension 21.3 mmHg (35.0-45.0)
== END 2023-03-09 22:33 | disposition hospice, inpatient (51) | DRG 70 ==
LOC: ERS 14:41 → 2NO 17:28 → IMCU/EMU 03-09 14:25
PROVIDERS: ADMIT Internal Medicine; ATTEND Family Medicine
PROC: 4A133R1 Monitoring of Arterial Saturation, Peripheral, Percutaneous Approach (ICD-10-PCS; principal; 2023-03-08)
PROC: 30233J1 Transfusion of Nonautologous Serum Albumin into Peripheral Vein, Percutaneous Approach (ICD-10-PCS; 2023-03-09)
PROC: 5A0935A Assistance with Respiratory Ventilation, Less than 24 Consecutive Hours, High Flow/Velocity Cannula (ICD-10-PCS; 2023-03-09)
DX: G93.41 Metabolic encephalopathy (principal); I50.31 Acute diastolic (congestive) heart failure; K72.00 Acute and subacute hepatic failure without coma; J96.01 Acute respiratory failure with hypoxia; I48.21 Permanent atrial fibrillation; N17.9 Acute kidney failure, unspecified; Z68.1 Body mass index [BMI] 19.9 or less, adult; I5A Non-ischemic myocardial injury (non-traumatic); I13.0 Hypertensive heart and chronic kidney disease with heart failure and stage 1 through stage 4 chronic kidney disease, or unspecified chronic kidney disease; S36.119A Unspecified injury of liver, initial encounter; I25.10 Atherosclerotic heart disease of native coronary artery without angina pectoris; K21.9 Gastro-esophageal reflux disease without esophagitis; E87.5 Hyperkalemia; N18.9 Chronic kidney disease, unspecified; F03.90 Unspecified dementia, unspecified severity, without behavioral disturbance, psychotic disturbance, mood disturbance, and anxiety; Z66 Do not resuscitate; D69.6 Thrombocytopenia, unspecified; I08.1 Rheumatic disorders of both mitral and tricuspid valves; K74.60 Unspecified cirrhosis of liver; E86.0 Dehydration; Z20.822 Contact with and (suspected) exposure to COVID-19; R41.0 Disorientation, unspecified; I48.0 Paroxysmal atrial fibrillation; R74.01 Elevation of levels of liver transaminase levels; Z51.5 Encounter for palliative care; R62.7 Adult failure to thrive; Z79.899 Other long term (current) drug therapy; Z79.82 Long term (current) use of aspirin; Z95.0 Presence of cardiac pacemaker; Z79.01 Long term (current) use of anticoagulants; Z98.49 Cataract extraction status, unspecified eye
CPT/HCPCS: 36415; 36416; 36600; 70450; 71045; 74018; 76705; 80053; 80061; 80074; 80307; 81001; 82103; 82140; 82248; 82390; 82550; 82553; 82728; 82805; 83516; 83540; 83550; 83735; 84100; 84145; 84443; 84484; 85025; 85027; 85610; 85730; 86015; 86038; 86225; 93005; 93306; 94640; 94760; J0295; J1650; J1940; J2270; J3475; J3480; J3490; J7042; J7050; J7620; P9047

== ENCOUNTER 2023-03-09 22:38 | Inpatient (IN) | payer OTHER ==
[2023-03-09] MEDS ORDERED: Ondansetron PF 4 MG/2 ML Vial IVP PRN (23:00)
[2023-03-09] MEDS ORDERED: Lorazepam 2 MG/ML VIAL SLOW IVP PRN (23:00)
[2023-03-09] MEDS ORDERED: Morphine 2 MG/ML VIAL SLOW IVP PRN (23:01)
[2023-03-09] MEDS ORDERED: Morphine 4 MG/ML VIAL SLOW IVP SCH (23:15)
[2023-03-09] MEDS: Scopolamine 1.5 mg/72 hour Patch TOP SCH (23:30)
[2023-03-10] MEDS: Morphine 4 MG/ML VIAL SLOW IVP SCH ×5 (01:00→17:42)
[2023-03-10] MEDS: Lorazepam 2 MG/ML VIAL SLOW IVP SCH ×6 (01:00→17:42)
[2023-03-10 13:28] VITALS: BMI 19.2
[2023-03-11] MEDS: Morphine 4 MG/ML VIAL SLOW IVP SCH ×7 (00:55→21:28)
[2023-03-11] MEDS: Lorazepam 2 MG/ML VIAL SLOW IVP SCH ×7 (00:55→21:27)
[2023-03-12] MEDS: Lorazepam 2 MG/ML VIAL SLOW IVP SCH ×6 (01:23→20:49)
[2023-03-12] MEDS: Morphine 4 MG/ML VIAL SLOW IVP SCH ×6 (01:23→20:49)
[2023-03-13] MEDS: Morphine 4 MG/ML VIAL SLOW IVP SCH ×6 (00:53→20:00)
[2023-03-13] MEDS: Scopolamine 1.5 mg/72 hour Patch TOP SCH (00:53)
[2023-03-13] MEDS: Lorazepam 2 MG/ML VIAL SLOW IVP SCH ×6 (00:53→20:00)
[2023-03-13 19:54] VITALS: BP 108/74; TEMP 96.7
[2023-03-13] MEDS ORDERED: Hyoscyamine SL 0.125 MG TAB SL PRN (21:01)
[2023-03-13] MEDS ORDERED: Scopolamine 1.5 mg/72 hour Patch TOP SCH (22:00)
[2023-03-14] MEDS: Morphine 4 MG/ML VIAL SLOW IVP SCH ×2 (01:11→05:13)
[2023-03-14] MEDS: Lorazepam 2 MG/ML VIAL SLOW IVP SCH ×2 (01:11→05:13)
== END 2023-03-14 06:10 | disposition expired | DRG 951 ==
LOC: IMCU/EMU 22:38 → MSONC 03-11 21:05
PROVIDERS: ADMIT Family Medicine; ATTEND Family Medicine
DX: Z51.5 Encounter for palliative care (principal); I21.4 Non-ST elevation (NSTEMI) myocardial infarction; I25.10 Atherosclerotic heart disease of native coronary artery without angina pectoris; I10 Essential (primary) hypertension; K21.9 Gastro-esophageal reflux disease without esophagitis; Z79.899 Other long term (current) drug therapy; Z79.82 Long term (current) use of aspirin; Z79.01 Long term (current) use of anticoagulants; Z95.0 Presence of cardiac pacemaker; Z98.49 Cataract extraction status, unspecified eye; I48.0 Paroxysmal atrial fibrillation; E78.5 Hyperlipidemia, unspecified
CPT/HCPCS: J2060; J2270